=== PATIENT | female | born 1985 | race Two or more races ===

== ENCOUNTER 2025-06-20 14:01 | Emergency (ER) | payer BC ==
[~2025-06-20] VITALS: Ht 167.6 cm; Wt 73.5 kg
[2025-06-20 14:10] VITALS: TEMP 98.1
[2025-06-20 14:42] LABS: PLATELET COUNT (AUTO) 184 K/uL (150-450); RED BLOOD CELL COUNT(AUTO) 5.16 MIL/uL (4.0-5.2); RED CELL DISTRIBUTION WIDTH 12.8 % (11.5-15.0); WHITE BLOOD COUNT (AUTO) 7.0 K/uL (4.3-11.0)
[2025-06-20 14:49] LABS: CALCIUM, SERUM 9.4 mg/dL (8.5-10.1); CREATININE 1.0 mg/dL (0.6-1.3); SODIUM SERUM 139 mmol/L (136-145); UREA NITROGEN, BLOOD 13 mg/dL (7-18)
[2025-06-20] MEDS: KETOROLAC TROMETHAMINE 15 MG/ML VIAL IV ONE (15:18)
[2025-06-20 16:15] VITALS: BP 127/79; O2SAT 99
== END 2025-06-20 15:50 | disposition home or self-care (01) ==
LOC: ER 14:14
DX: R07.89 Other chest pain (principal); R10.20 Pelvic and perineal pain unspecified side
CPT/HCPCS: 99285; 96374; 71045; 93005; 85025; 80048; 85378; 36415; 84484; 84702; J1885